=== PATIENT | male | born 1955 | race Caucasian/White ===

== ENCOUNTER 2023-10-26 15:03 | Inpatient (IN) | payer OTHER, MEDICAID ==
[~2023-10-26] VITALS: Ht 182.9 cm; Wt 108.0 kg
[2023-10-26 15:03] VITALS: BP_SYST 120; PULSE 94; RESP 18; TEMP 98.1; O2SAT 98
[~2023-10-26 15:03] MED LIST: GLIP10TA11 PO
[2023-10-26 16:31] LABS: BASOPHILS # (AUTO) 0.1 K/uL (0.0-0.2); BASOPHILS % (AUTO) 0.9 % (0.0-2.0); EOSINOPHILS # (AUTO) 0.8 K/uL (0.0-0.4); EOSINOPHILS % (AUTO) 6.7 % (0.0-4.0); HEMATOCRIT 38.6 % (36-54); HEMOGLOBIN 13.3 g/dL (14.0-18.0); LYMPHOCYTES # (AUTO) 2.2 K/uL (1.0-5.5); LYMPHOCYTES % (AUTO) 19.4 % (20.5-51.5); MEAN CORPUSCULAR HEMOGLOBIN 28 pg (27-31); MEAN CORPUSCULAR HGB CONC 35 % (32-36); MEAN CORPUSCULAR VOLUME 80 fL (79.0-98.0); MONOCYTES # (AUTO) 0.6 K/uL (0.0-1.0); MONOCYTES % (AUTO) 5.4 % (1.7-9.3); NEUTROPHILS # (AUTO) 7.7 K/uL (1.8-7.7); NEUTROPHILS % (AUTO) 67.6 % (40.0-70.0); PLATELET COUNT (AUTO) 331 K/uL (130-430); RED BLOOD CELL COUNT(AUTO) 4.81 MIL/uL (4.2-6.2); WHITE BLOOD COUNT (AUTO) 11.4 K/uL (4.8-10.8)
[2023-10-26 16:44] LABS: CALCIUM 9.5 mg/dL (8.4-11.0); CREATININE 0.93 mg/dL (0.55-1.30); POTASSIUM 4.6 mmol/L (3.5-5.1); TOTAL BILIRUBIN 0.3 mg/dL (0.0-1.0); TOTAL PROTEIN, SERUM 6.8 g/dL (6.4-8.3)
[2023-10-26 16:54] LABS: BILIRUBIN,DIRECT 0.1 mg/dL (0.0-0.3)
[2023-10-26 17:25] LABS: PROTHROMBIN TIME 10.7 SECS (9.5-12.5)
[2023-10-26] MEDS ORDERED: INSU100I4 SUBQ (17:58)
[2023-10-26] MEDS ORDERED: SSNOVOLOG SUBCUT (17:58)
[2023-10-26] MEDS ORDERED: BENA-6 PO (17:58)
[2023-10-26] MEDS ORDERED: ACET325T53 PO (17:58)
[2023-10-26] MEDS ORDERED: PREG75CA PO (17:58)
[2023-10-26] MEDS ORDERED: CALC200T56 PO (17:58)
[2023-10-26] MEDS ORDERED: DEXT50DI5 IV (17:58)
[2023-10-26] MEDS ORDERED: BISA-79 RC (17:58)
[2023-10-26] MEDS ORDERED: SACC250C3 PO (17:58)
[2023-10-26] MEDS ORDERED: INSU100V11 SQ ×2 (17:58)
[2023-10-26] MEDS ORDERED: SENN8.6T19 PO (17:58)
[2023-10-26] MEDS ORDERED: SIMV-343 PO (17:58)
[2023-10-26] MEDS ORDERED: APIX5TAB4 PO (17:58)
[2023-10-26] MEDS ORDERED: IPRA4AER INH (17:58)
[2023-10-26] MEDS ORDERED: GLUC1VIA14 IM (17:58)
[2023-10-26] MEDS ORDERED: POLY17PO4 PO (17:58)
[2023-10-26] MEDS ORDERED: TAMS-11 PO (17:58)
[2023-10-26] MEDS ORDERED: BISA-140 PO (17:58)
[2023-10-26] MEDS ORDERED: DOCU-144 PO (17:58)
[2023-10-26] MEDS: VANCOMYCIN HCL 1,500 MG in NS 250 ML IV ONE (18:20)
[2023-10-26 22:00] VITALS: BP_SYST 136; PULSE 83; RESP 19; TEMP 98.1; O2SAT 97
[2023-10-26 22:25] VITALS: O2SAT 97
[2023-10-26] MEDS: PIPERACILLIN/TAZO 3.375 GM in NS 50 ML IV SCH (22:34)
[2023-10-26 22:42] VITALS: BP_SYST 136; PULSE 83; RESP 20; TEMP 98.1; O2SAT 97
[2023-10-27] VITALS (7 sets, daily range): BP systolic 106–134; PULSE 91–103; RESP 18; TEMP 97.3–98.8; O2SAT 95–96
[2023-10-27] MEDS: VANCOMYCIN HCL 1,500 MG in NS 250 ML IV SCH (09:07)
[2023-10-27] MEDS ORDERED: BISACODYL 5 MG TABLET.DR (DULCOLAX) PO SCH (12:15)
[2023-10-27] MEDS: INSULIN GLARGINE 100 UNITS/ML, 10 ML VIAL SUBCUT ONE (12:51)
[2023-10-27 13:39] LABS: PROTHROMBIN TIME 10.6 SECS (9.5-12.5)
[2023-10-27] MEDS: PREGABALIN 75 MG CAPSULE (LYRICA) PO ONE (14:09)
[2023-10-27] MEDS: LACTOBACILLUS RHAMNOSUS GG 1 CAP CAPSULE PO SCH (15:51)
[2023-10-27] MEDS: INSULIN LISPRO SLIDING SCALE 100 UNITS/ML, 3 ML VIAL (humaLOG) SUBCUT PRN (18:05)
[2023-10-27] MEDS: METOPROLOL TARTRATE 25 MG TABLET PO SCH (20:58)
[2023-10-27] MEDS: TAMSULOSIN HCL 0.4 MG CAP PO SCH (20:59)
[2023-10-27] MEDS: DOCUSATE SODIUM 100 MG CAPSULE PO SCH (20:59)
[2023-10-27] MEDS: SENNOSIDES 8.6 MG TABLET PO SCH (20:59)
[2023-10-27] MEDS ORDERED: SIMVASTATIN 20 MG TABLET PO SCH (21:00)
[2023-10-27] MEDS: INSULIN GLARGINE 100 UNITS/ML, 10 ML VIAL SUBCUT SCH (21:20)
[2023-10-28] VITALS: BP_SYST 114; PULSE 73; RESP 18; TEMP 97.6
[2023-10-28 04:43] LABS: BASOPHILS # (AUTO) 0.1 K/uL (0.0-0.2); BASOPHILS % (AUTO) 0.8 % (0.0-2.0); EOSINOPHILS # (AUTO) 0.8 K/uL (0.0-0.4); EOSINOPHILS % (AUTO) 9.4 % (0.0-4.0); HEMATOCRIT 37.2 % (36-54); HEMOGLOBIN 12.8 g/dL (14.0-18.0); LYMPHOCYTES # (AUTO) 1.6 K/uL (1.0-5.5); LYMPHOCYTES % (AUTO) 20.3 % (20.5-51.5); MEAN CORPUSCULAR HEMOGLOBIN 27 pg (27-31); MEAN CORPUSCULAR HGB CONC 34 % (32-36); MEAN CORPUSCULAR VOLUME 79 fL (79.0-98.0); MONOCYTES # (AUTO) 0.6 K/uL (0.0-1.0); NEUTROPHILS % (AUTO) 62.5 % (40.0-70.0); PLATELET COUNT (AUTO) 287 K/uL (130-430); RED BLOOD CELL COUNT(AUTO) 4.71 MIL/uL (4.2-6.2); WHITE BLOOD COUNT (AUTO) 8.1 K/uL (4.8-10.8)
[2023-10-28 05:08] LABS: CALCIUM 9.3 mg/dL (8.4-11.0); CREATININE 0.93 mg/dL (0.55-1.30); POTASSIUM 3.9 mmol/L (3.5-5.1)
[2023-10-28 07:55] VITALS: BP_SYST 136; PULSE 107; RESP 17; TEMP 97.4; O2SAT 97
[2023-10-28 08:30] VITALS: O2SAT 97
[2023-10-28] MEDS: ATORVASTATIN 20 MG TABLET PO SCH (09:00)
[2023-10-28] MEDS: PREGABALIN 75 MG CAPSULE (LYRICA) PO SCH (09:00)
[2023-10-28] MEDS ORDERED: lisinopriL 20 MG TABLET PO SCH (09:00)
[2023-10-28] MEDS: POLYETHYLENE GLYCOL 3350, 17 GM/ POWD.PACK PO SCH (09:00)
[2023-10-28 13:12] VITALS: BP_SYST 138; PULSE 104; RESP 17; TEMP 98.1; O2SAT 99
[2023-10-28 17:16] VITALS: BP_SYST 139; PULSE 104; RESP 16; TEMP 98.2; O2SAT 99
[2023-10-28 20:00] VITALS: O2SAT 96
[2023-10-28] MEDS ORDERED: MORPHINE 4 MG INJ. 4 MG/ML VIAL IVP PRN (20:15)
[2023-10-28] MEDS ORDERED: HYDROmorphone 1 MG/ML INJ. CARTRIDGE IVP PRN (20:15)
[2023-10-28] MEDS ORDERED: ONDANSETRON HCL 4 MG/2 ML VIAL IVP PRN (20:15)
[2023-10-28] MEDS ORDERED: DEXAMETHASONE SOD PHOSPHATE 4 MG/ML VIAL ONE (20:39)
[2023-10-28] MEDS: NACL 0.9% 1,000 ML IV SCH (22:24)
[2023-10-29] VITALS: BP_SYST 111; PULSE 105; RESP 18; TEMP 97.6; O2SAT 97
[2023-10-29] MEDS: ACETAMINOPHEN 325 MG TABLET PO SCH (05:31)
[2023-10-29 07:20] LABS: BASOPHILS % (AUTO) 0.4 % (0.0-2.0); HEMOGLOBIN 13.4 g/dL (14.0-18.0); LYMPHOCYTES # (AUTO) 1.3 K/uL (1.0-5.5); LYMPHOCYTES % (AUTO) 15.2 % (20.5-51.5); MEAN CORPUSCULAR HEMOGLOBIN 27 pg (27-31); MEAN CORPUSCULAR HGB CONC 34 % (32-36); MEAN CORPUSCULAR VOLUME 82 fL (79.0-98.0); MONOCYTES # (AUTO) 0.3 K/uL (0.0-1.0); MONOCYTES % (AUTO) 3.1 % (1.7-9.3); NEUTROPHILS # (AUTO) 6.8 K/uL (1.8-7.7); NEUTROPHILS % (AUTO) 81.3 % (40.0-70.0); PLATELET COUNT (AUTO) 317 K/uL (130-430); RED BLOOD CELL COUNT(AUTO) 4.91 MIL/uL (4.2-6.2); RED CELL DISTRIBUTION WIDTH 15.5 % (9.0-15.0); WHITE BLOOD COUNT (AUTO) 8.3 K/uL (4.8-10.8)
[2023-10-29 07:42] LABS: CALCIUM 9.2 mg/dL (8.4-11.0); POTASSIUM 4.6 mmol/L (3.5-5.1); TOTAL BILIRUBIN 0.7 mg/dL (0.0-1.0); TOTAL PROTEIN, SERUM 7.2 g/dL (6.4-8.3); VANCOMYCIN,TROUGH 17.3 ug/mL (10.0-20.0)
[2023-10-29 08:24] VITALS: BP_SYST 113; PULSE 86; RESP 19; TEMP 97.8; O2SAT 95
[2023-10-29 10:00] VITALS: O2SAT 98
[2023-10-29] MEDS: MORPHINE 4 MG INJ. 4 MG/ML VIAL IVP PRN (11:08)
[2023-10-29 11:20] VITALS: BP_SYST 104; PULSE 115; RESP 16; TEMP 97.9; O2SAT 97
[2023-10-29] MEDS ORDERED: ACETAMINOPHEN 325 MG TABLET PO PRN (12:01)
[2023-10-29] MEDS: BISACODYL 5 MG TABLET.DR (DULCOLAX) PO PRN (14:09)
[2023-10-29 15:49] VITALS: BP_SYST 115; PULSE 97; RESP 16; TEMP 97.2; O2SAT 98
[2023-10-29] MEDS: CALCIUM CARBONATE 500 MG/ TAB.CHEW PO PRN (21:12)
[2023-10-29] MEDS: INSULIN GLARGINE 100 UNITS/ML, 10 ML VIAL SUBCUT SCH (21:45)
[2023-10-29] MEDS: MEROPENEM 1 GM in NS 100 ML IV SCH (22:01)
[2023-10-29 22:45] VITALS: O2SAT 97
[2023-10-30] VITALS (8 sets, daily range): BP systolic 119–141; PULSE 73–110; RESP 16–18; TEMP 96.7–98; O2SAT 93–97
[2023-10-30 06:09] LABS: BASOPHILS # (AUTO) 0.1 K/uL (0.0-0.2); EOSINOPHILS # (AUTO) 0.4 K/uL (0.0-0.4); EOSINOPHILS % (AUTO) 5.4 % (0.0-4.0); HEMATOCRIT 36.7 % (36-54); HEMOGLOBIN 12.1 g/dL (14.0-18.0); LYMPHOCYTES # (AUTO) 1.7 K/uL (1.0-5.5); LYMPHOCYTES % (AUTO) 24.2 % (20.5-51.5); MEAN CORPUSCULAR HEMOGLOBIN 27 pg (27-31); MEAN CORPUSCULAR HGB CONC 33 % (32-36); MEAN CORPUSCULAR VOLUME 81 fL (79.0-98.0); MONOCYTES # (AUTO) 0.5 K/uL (0.0-1.0); MONOCYTES % (AUTO) 6.6 % (1.7-9.3); NEUTROPHILS # (AUTO) 4.3 K/uL (1.8-7.7); NEUTROPHILS % (AUTO) 62.8 % (40.0-70.0); PLATELET COUNT (AUTO) 293 K/uL (130-430); RED BLOOD CELL COUNT(AUTO) 4.52 MIL/uL (4.2-6.2); RED CELL DISTRIBUTION WIDTH 15.8 % (9.0-15.0); WHITE BLOOD COUNT (AUTO) 6.9 K/uL (4.8-10.8)
[2023-10-30 06:29] LABS: ALBUMIN 2.9 g/dL (3.4-4.8); CALCIUM 9.3 mg/dL (8.4-11.0); CREATININE 1.03 mg/dL (0.55-1.30); POTASSIUM 4.1 mmol/L (3.5-5.1); TOTAL BILIRUBIN 0.4 mg/dL (0.0-1.0); TOTAL PROTEIN, SERUM 6.7 g/dL (6.4-8.3)
[2023-10-30] MEDS: FUROSEMIDE 20 MG/2 ML VIAL IVP SCH (13:33)
[2023-10-30] MEDS: IPRATROPIUM/ALBUTEROL SULFATE 3 ML AMPUL.NEB (DUONEB) INH PRN (13:57)
[2023-10-30] MEDS: APIXABAN 2.5 MG TABLET PO SCH (20:57)
[2023-10-30] MEDS: INSULIN GLARGINE 100 UNITS/ML, 10 ML VIAL SUBCUT SCH (21:03)
[2023-10-31 00:05] VITALS: BP_SYST 134; PULSE 89; RESP 14; TEMP 96.8; O2SAT 97
[2023-10-31 04:42] LABS: BASOPHILS # (AUTO) 0.1 K/uL (0.0-0.2); BASOPHILS % (AUTO) 0.9 % (0.0-2.0); EOSINOPHILS # (AUTO) 0.4 K/uL (0.0-0.4); EOSINOPHILS % (AUTO) 5.6 % (0.0-4.0); HEMATOCRIT 38.6 % (36-54); HEMOGLOBIN 12.9 g/dL (14.0-18.0); LYMPHOCYTES # (AUTO) 1.5 K/uL (1.0-5.5); LYMPHOCYTES % (AUTO) 19.6 % (20.5-51.5); MEAN CORPUSCULAR HEMOGLOBIN 27 pg (27-31); MEAN CORPUSCULAR HGB CONC 33 % (32-36); MEAN CORPUSCULAR VOLUME 81 fL (79.0-98.0); MONOCYTES # (AUTO) 0.5 K/uL (0.0-1.0); MONOCYTES % (AUTO) 6.5 % (1.7-9.3); NEUTROPHILS % (AUTO) 67.4 % (40.0-70.0); PLATELET COUNT (AUTO) 283 K/uL (130-430); RED BLOOD CELL COUNT(AUTO) 4.78 MIL/uL (4.2-6.2); WHITE BLOOD COUNT (AUTO) 7.5 K/uL (4.8-10.8)
[2023-10-31 04:58] LABS: ALBUMIN 2.9 g/dL (3.4-4.8); CREATININE 0.89 mg/dL (0.55-1.30); POTASSIUM 3.7 mmol/L (3.5-5.1); TOTAL BILIRUBIN 0.6 mg/dL (0.0-1.0); TOTAL PROTEIN, SERUM 6.6 g/dL (6.4-8.3)
[2023-10-31 08:00] VITALS: BP_SYST 124; PULSE 96; RESP 18; TEMP 98.5; O2SAT 98
[2023-10-31] MEDS: FUROSEMIDE 20 MG/2 ML VIAL IVP SCH (09:36)
[2023-10-31 12:51] VITALS: BP_SYST 145; PULSE 120; RESP 18; TEMP 98.1; O2SAT 96
[2023-10-31 16:20] VITALS: BP_SYST 130; PULSE 115; RESP 18; TEMP 98.3; O2SAT 95
[2023-10-31 17:15] VITALS: O2SAT 98
[2023-10-31] MEDS: DIGOXIN 0.5 MG/2 ML AMP IVP ONE ×2 (18:00→19:21)
[2023-10-31 20:20] VITALS: BP_SYST 152; PULSE 105; RESP 20; TEMP 98.6; O2SAT 96
[2023-10-31] MEDS: HYDROcodone/ACETAMIN 5-325 MG TAB (NORCO/ VICODIN) PO PRN (21:29)
[2023-10-31] MEDS: METOPROLOL TARTRATE 50 MG TABLET PO SCH (21:31)
[2023-11-01 00:10] VITALS: BP_SYST 131; PULSE 93; RESP 18; TEMP 97.9; O2SAT 99
[2023-11-01] MEDS: DIGOXIN 0.5 MG/2 ML AMP IVP ONE ×2 (03:17→07:49)
[2023-11-01 08:00] VITALS: BP_SYST 137; PULSE 100; RESP 14; TEMP 97.9; O2SAT 97
[2023-11-01 11:05] VITALS: BP_SYST 137; PULSE 109; RESP 18; TEMP 98.3; O2SAT 96
[2023-11-01 15:01] VITALS: BP_SYST 137; PULSE 74; RESP 18; TEMP 97.8; O2SAT 98
== END 2023-11-01 15:52 | DRG 264 ==
LOC: SED 15:03 → SMU 18:43 → STU 10-30 09:24 → SMU 10-31 20:15
PROVIDERS: ADMIT Specialist; ATTEND Specialist
PROC: 0JBQ0ZZ Excision of Right Foot Subcutaneous Tissue and Fascia, Open Approach (ICD-10-PCS; principal; 2023-10-28 19:26)
DX: E11.52 Type 2 diabetes mellitus with diabetic peripheral angiopathy with gangrene (principal); L97.419 Non-pressure chronic ulcer of right heel and midfoot with unspecified severity; L03.115 Cellulitis of right lower limb; E11.621 Type 2 diabetes mellitus with foot ulcer; N40.0 Benign prostatic hyperplasia without lower urinary tract symptoms; E66.9 Obesity, unspecified; E11.319 Type 2 diabetes mellitus with unspecified diabetic retinopathy without macular edema; I48.91 Unspecified atrial fibrillation; I11.0 Hypertensive heart disease with heart failure; I50.9 Heart failure, unspecified; E78.5 Hyperlipidemia, unspecified; E11.65 Type 2 diabetes mellitus with hyperglycemia; Z68.30 Body mass index [BMI] 30.0-30.9, adult; Z79.01 Long term (current) use of anticoagulants; Z79.899 Other long term (current) drug therapy; Z79.4 Long term (current) use of insulin; Z88.1 Allergy status to other antibiotic agents; Z88.8 Allergy status to other drugs, medicaments and biological substances
CPT/HCPCS: 36415; 71045; 73700-TC; 73721; 80048; 80053; 80076; 80202; 82948; 83037; 83605; 85025; 85610; 85730; 87040; 87070; 87075; 87081; 87186; 88304; 93005; 93306; 93922; 94070; 94640; 96365; 97110-GP; 97530-GP; 99285; G0378; J0330; J1100; J1160; J1815; J1940; J2185; J2250; J2270; J2405; J2543; J2704; J3010; J3370; J3490; J7030; J7050